=== PATIENT | male | born 1960 | race Caucasian/White ===

== ENCOUNTER 2023-09-24 14:37 | Emergency (ER) | payer BC ==
[~2023-09-24] VITALS: Ht 177.8 cm; Wt 113.0 kg
[2023-09-24 14:42] VITALS: BP 109/54; PULSE 78; RESP 18; TEMP 99; O2SAT 99
[2023-09-24] MEDS: IBUPROFEN 600MG TABLET PO ONE (17:28)
[2023-09-24] MEDS: ACETAMINOPHEN 500MG TABLET PO ONE (17:29)
[2023-09-24 19:17] LABS: HEMATOCRIT 33.1 % (42.0-52.0); HEMOGLOBIN 10.8 g/dL (14.0-18.0); MEAN CORPUSCULAR HEMOGLOBIN 31.8 pg (28.0-32.0); MEAN CORPUSCULAR HGB CONC 32.7 g/dL (31.0-37.0); MEAN CORPUSCULAR VOLUME 97.3 fL (80.0-94.0); PLATELET 201 x1000/uL (130-400); RED CELL DISTRIBUTION WIDTH 16.4 % (11.6-14.6); WHITE BLOOD COUNT 5.2 x1000/uL (4.5-11.0)
[2023-09-24 19:29] LABS: CALCIUM 8.9 mg/dL (8.7-10.4); CARBON DIOXIDE 24 mEq/L (21-32); CHLORIDE 105 mEq/L (98-107); CREATINE KINASE 28 IU/L (46-171); CREATININE 0.7 mg/dL (0.6-1.3); GLUCOSE 136 mg/dL (70-105); POTASSIUM 3.6 mEq/L (3.5-5.1); SODIUM 138 mEq/L (136-145); UREA NITROGEN BLOOD 11 mg/dL (9-23)
[2023-09-24] MEDS ORDERED: TOPUD MT (19:42)
== END 2023-09-24 19:45 | disposition home or self-care (01) ==
LOC: ER 14:37
DX: M79.604 Pain in right leg (principal); E11.9 Type 2 diabetes mellitus without complications
CPT/HCPCS: 29515; 36415; 73590; 73610; 73620; 80048; 82550; 85027; 99284